=== PATIENT | male | born 1995 | race Caucasian/White ===

== ENCOUNTER 2018-06-23 16:54 | Emergency (ER) | payer MEDICAID ==
[~2018-06-23] VITALS: Ht 190.5 cm; Wt 109.1 kg
[~2018-06-23 16:54] MED LIST: CLON-529 PO
[2018-06-23 17:17] VITALS: BP 131/89
== END 2018-06-23 19:25 | disposition home or self-care (01) ==
LOC: ER 16:54
DX: S93.401A Sprain of unspecified ligament of right ankle, initial encounter (principal); F19.90 Other psychoactive substance use, unspecified, uncomplicated; Z79.899 Other long term (current) drug therapy; W18.39XA Other fall on same level, initial encounter; Y93.67 Activity, basketball; Y92.89 Other specified places as the place of occurrence of the external cause; Y99.8 Other external cause status
CPT/HCPCS: 73610; 99284

== ENCOUNTER 2025-04-12 18:22 | Emergency (ER) | payer MEDICAID ==
[~2025-04-12] VITALS: Ht 190.5 cm; Wt 115.0 kg
[2025-04-12 18:50] VITALS: BP 161/63; PULSE 92; RESP 18; O2SAT 99
--- NOTE | 2025-04-12 20:15 | RADIOLOGY REPORT ---
CLINICAL INDICATION: FINGER PAIN TECHNIQUE: 3 radiographic views of the left finger were obtained. Comparison: None FINDINGS/IMPRESSION: There is no evidence of acute fracture or dislocation. The visualized joint space is well maintained. The alignment is anatomical. There is no radiopaque foreign body. Mild soft tissue edema of the 2nd digit.
[2025-04-12] MEDS ORDERED: CEPH-585 PO (21:50)
--- NOTE | 2025-04-12 21:50 | Physician Documentation ---
History of Present Illness ~ Chief Complaint: Finger pain Stated Complaint: FINGER PAIN Time Seen by MD: 19:41 Primary Medical Doctor: [facility] HPI Patient pleasant 29-year-old male that reports to the emergency department for evaluation of a wound sustained to his left index finger while at work. Patient reports that he accidentally injured his finger with a drill bit lacerating the finger. Presents time the fingers become very swollen erythematous painful difficult to bend with a pocket of fluctuance purulent fluid. Patient denies any fever chills nausea vomiting or any other symptoms at this time. Tetanus within 5 years: No Medication Reconciliation Allergies: Coded Allergies: No Known Allergies (Unverified , 04/12/25) Scheduled Clonidine Hcl* (Catapres*), 0.1 MG PO TID Past Medical History Past Medical History: No Pertinent History Past Surgical History: noncontributory Alcohol Use: None Drug Use: other Lives with: Family Lives In: Home Review of Systems ROS As stated above in the HPI, otherwise all systems are reviewed and negative. Physical Exam Vital Signs: Temperature: 97.9, Heart Rate: 92, Respiratory Rate: 18, BP: 161/63, Pulse Oximetry: 99, Weight: 115.000 Physical Exam VITALS: Reviewed and as above. GENERAL: Alert, no apparent distress. HEENT: Normocephalic, atraumatic, PERRL, EOMI, dry mucosa, no erythema RESPIRATORY: Lungs clear, normal breath sounds, no respiratory distress. CHEST: No accessory muscle use, no retractions CV: Regular rate, rhythm, no edema, no murmur, No: JVD GI: Soft, non-tender, bowels sounds present, no rebound, guarding, or rigidity BACK: No CVA tenderness, or swelling MUSCULOSKELETAL No deformities, no edema SKIN: Warm and dry, edema small area of abscess noted to the left index finger. NEURO: Oriented x4, No motor or sensory deficit PSYCH: Normal mood and affect, no agitation Progress Results/Orders Results/Orders Orders - DEREK WILSON POLE [employer]ER Finger(S) (04/12/25 ) Stat Ekg (04/12/25 21:27) Completed Orders - DEREK WILSON [employer] Finger(S) (04/12/25 ) Cephalexin Capsule (Keflex Capsule) (04/12/25 21:30) Medications Received in ER Medications (Trade) Dose Ordered Sig/Jose Route PRN Reason Start Time Stop Time Status Last Admin Dose Admin (Keflex capsule) 500 mg ONCE ONCE PO 04/12/25 21:30 04/12/25 21:31 DC 04/12/25 21:39 500 MG Vital Signs 04/12/25 18:50 Temp 97.9 Pulse 92 Resp 18 B/P (MAP) 161/63 Pulse Ox 99 Medical Decision Making Additional information obtaine: other Findings This patient presents with a painful fluid pocket with fluctuance and surrounding induration and erythema, concerning for an abscess of the left index finger. The abscess was anesthetized with lidocaine and then I&D was performed with deloculation and purulence was expressed. There is no lymphangitic spread visible. Low concern for osteomyelitis. Patient is not immunocompromised, and there is no bullae, pain out of proportion, or rapid progression concerning for necrotizing fasciitis. Patient to be discharged home with keflex with follow up with their PMD. Patient will return to the emergency department with any worsening of his current symptoms or any additional concerning symptoms that we discussed here today i.e. increased redness increased swelling fever chills nausea vomiting or any other concerning symptoms that we discussed here today. EKG performed after patient demonstrated vasovagal episodes twice during procedure. Vitals signs remained stable. Patient reports he has a heart murmur. Patient will follow up with his primary care provider regarding today's events. EKG was without abnormality. Please take your antibiotics as prescribed. Please follow up with the primary care provider. Please return to the emergency department with any worsening or recurrent symptoms or any additional concerning symptoms that we discussed here today. General Diff Dx:Considerations: Include: Abrasion, Contusion, Fracture, Hematoma, Laceration, Malunion, Neurovascular injury, Open fracture, Sprain, Ulcer, Other Shoulder Diff Dx:Consideration: Include: AC separation, Adhesive capsulitis, Arthritis, Bicipital tendonitis, Calcific tendonitis, Cervical disc disease, Contusion, Dislocation, Fracture-humerus, Fracture-scapula, Fracture-clavicle, GB disease, Hematoma, Impingement syndrome, Myocardial infarction, Neurovascular injury, Open fracture-humerus, Open fracture-scapula, Open fracture-clavicle, Rotator cuff injury, SC dislocatoin, Sprain, Subacromial bursitis, Other Elbow Diff Dx:Considerations: Include: Abrasion, Arthritis, Contustion, DJD, Fracture-humerus, Fracture-radial head, Fracture-radius, Fracture-ulna, Gout, Hematoma, Laceration, Neurovascular injury, Olecranon bursitis, Open fracture, Osteomyelitis, Radial head subluxation, Rheumatoid arthritis, Septic, Sprain, Ulcer, Other Wrist Diff Dx:Considerations: Include: Abrasion, Arthritis, DJD, Gout, Rheumatoid, Septic, Carpal tunnel snydrome, Contusion, Dislocation, Fracture- carpal, Fracture-radius, Fracture-ulna, Ganglion, Laceration, Neurovascular injury, Open fracture, Strain, Other Hand Diff Dx:Considerations: Include: Abrasion, Arthritis, Contusion, DJD, Felon, Fracture-carpal, Fracture-metacarpal, Fracture-phalynx, Fracture-radius, Fracture-ulna, Gout, Hematoma, Herpetic [place], Laceration, Neurovascular injury, Open fracture, Paronychia, Rheumatoid arthritis, Septic, Sprain, Subungual hematoma, Tenosynovitis, Volar plate injury, Cellulitis, Malunion, Other Finger Diff Dx:Considerations: Include: Abrasion, Cellulitis, Contusion, Dislocation, Fracture, Hematoma, Laceration, Neurovascular injury, Open fracture, Subungual hematoma, Other Departure Disposition: 01 HOME / SELF CARE / HOMELESS Impression: Primary Impression: Abscess Condition: Stable Discharge Instructions: Abscess/Boil Additional Instructions: This patient presents with a painful fluid pocket with fluctuance and surrounding induration and erythema, concerning for an abscess of the left index finger. The abscess was anesthetized with lidocaine and then I&D was performed with deloculation and purulence was expressed. There is no lymphangitic spread visible. Low concern for osteomyelitis. Patient is not immunocompromised, and there is no bullae, pain out of proportion, or rapid progression concerning for necrotizing fasciitis. Patient to be discharged home with keflex with follow up with their PMD. Patient will return to the emergency department with any worsening of his current symptoms or any additional concerning symptoms that we discussed here today i.e. increased redness increased swelling fever chills nausea vomiting or any other concerning symptoms that we discussed here today. EKG performed after patient demonstrated vasovagal episodes twice during procedure. Vitals signs remained stable. Patient reports he has a heart murmur. Patient will follow up with his primary care provider regarding today's events. EKG was without abnormality. Please take your antibiotics as prescribed. Please follow up with the primary care provider. Please return to the emergency department with any worsening or recurrent symptoms or any additional concerning symptoms that we discussed here today. Referrals: NO PRIMARY CARE PROVIDER (PCP) Prescriptions Cephalexin*Monohydrate* (Keflex*) 500 Mg Capsule 1 CAP PO QID for 7 Days, #28 CAP Prov: DERKE WILSON 04/12/25 Education Educated: Patient, Family Educated regarding: diagnosis, treatment, need for follow up Signature Scribe Signature: A Attestation: Scribed for Derek Wilson by SHELBY Leonard . 04/12/25 21:51 DEREK WILSON Apr 12, 2025 21:50
[2025-04-12 21:54] VITALS: TEMP 97.9
--- NOTE | 2025-04-13 11:54 | ELECTROCARDIOGRAPH REPORT ---
[facility] Test Date: 2025-04-12 Test Time: 21:35:05 Pat Name: YOANA ENRIQUEZ Department: EMERGENCY ROOM Room: Gender: M Human Resources Vice President: : 1995 Requested By: DEREK WILSON Order Number: [id number] Reading MD: Measurements Intervals [place] Rate: 69 P: 37 ME: 141 QRS: 80 QRSD: 102 T: 42 QT: 397 QTc: 426 Interpretive Statements Sinus arrhythmia RSR' in V1 or V2, right VCD or RVH Please click the below link to view image of tracing.
== END 2025-04-12 21:56 | disposition home or self-care (01) ==
LOC: ER 18:23
DX: L02.512 Cutaneous abscess of left hand (principal); Z79.899 Other long term (current) drug therapy
CPT/HCPCS: 10060; 26010; 73140; 93005; 99283; A6449